=== PATIENT | female | born 1990 | race Caucasian/White ===

== ENCOUNTER 2017-12-30 07:25 | Outpatient (CLI) | payer OTHER ==
--- NOTE | 2017-12-31 14:01 | Ultrasound Report ---
OB ULTRASOUND: 12/30/2017 CLINICAL INDICATION: anatomy. TECHNIQUE: Real-time scanning was performed with community engagement representative static images obtained. LAST MENSTRUAL PERIOD: -- Clinical Age: -- weeks -- days US Age: 20 weeks 2 days EFW Hadlock: 330 grams EFW% Hadlock: -- Heart Rate: 150 bpm EDC: -- US EDC: 05/17/2018 BPD Hadlock: 20 weeks 3 days; Mean mm 48 HC Hadlock: 20 weeks 3 days; Mean mm 180 AC Hadlock: 19 weeks 6 days; Mean mm 145 FL Hadlock: 20 weeks 1 day; Mean mm 33 Presentation: cephalic Placental Location: posterior - L Cervical Length: 5.0 cm Amniotic Fluid: 11.4 cm FINDINGS There is a single viable intrauterine gestation, in cephalic presentation. The heart rate is 150 BPM. The placenta is posterior, without evidence of previa. Amniotic fluid volume is subjectively normal, with the deepest pocket of 3.4 cm. By size, the fetus measures 20 weeks 2 days (uncertain LMP). The following anatomic structures were visualized and appear normal: The intracranial contents, including the ventricles and posterior fossa; the lips and orbits; the spine; the heart, including 4 chamber view and outflow tracts, and diaphragm; the abdominal contents, including the stomach, the bilateral kidneys, and urinary bladder, as well as a normal 3 vessel cord insertion; 4 limbs. No free fluid or adnexal lesion is appreciated. IMPRESSION: Single viable intrauterine gestation, measuring 20 weeks 2 days by size. Normal anatomic survey. TD: 12/30/2017 19:22 [facility]
== END 2017-12-30 07:26 | disposition home or self-care (01) ==
LOC: DI 07:25
PROVIDERS: ATTEND Nurse Practitioner Obstetrics & Gynecology
DX: Z36.9 Encounter for antenatal screening, unspecified (principal); Z3A.20 20 weeks gestation of pregnancy
CPT/HCPCS: 76811

== ENCOUNTER 2018-02-11 14:38 | Outpatient (CLI) | payer OTHER ==
[2018-02-11 16:07] LABS: HGB - HEMOGLOBIN 11.4 g/dL (12.0-16.0); MEAN CORPUSCULAR HEMOGLOBIN 31.5 pg (27.0-31.0); MEAN CORPUSCULAR VOLUME 90.2 fL (81.0-99.0); MEAN PLATELET VOLUME 8.2 fL (7.9-10.8); RED BLOOD COUNT 3.63 10^6/uL (4.20-5.40); RED CELL DISTRIBUTION WIDTH 13.3 % (12.0-15.0)
== END 2018-02-11 14:39 | disposition home or self-care (01) ==
LOC: LAB 14:38
PROVIDERS: ATTEND Registered Nurse
DX: O28.8 Other abnormal findings on antenatal screening of mother (principal); Z34.82 Encounter for supervision of other normal pregnancy, second trimester
CPT/HCPCS: 36415; 82950; 86850; 87086

== ENCOUNTER 2018-03-11 08:00 | Outpatient (CLI) | payer OTHER | END 2018-03-11 08:01 | disposition home or self-care (01) | LOC: LAB.R 08:00 | PROVIDERS: ATTEND Nurse Practitioner Obstetrics & Gynecology | DX: R82.90 Unspecified abnormal findings in urine (principal) | CPT/HCPCS: 87077; 87086 ==

== ENCOUNTER 2018-03-24 08:00 | Outpatient (CLI) | payer OTHER | END 2018-03-24 08:01 | disposition home or self-care (01) | LOC: LAB.R 08:00 | PROVIDERS: ATTEND Registered Nurse | DX: N30.20 Other chronic cystitis without hematuria (principal) | CPT/HCPCS: 87086 ==

== ENCOUNTER 2018-04-07 10:09 | Outpatient (CLI) | payer OTHER | END 2018-04-07 10:10 | disposition home or self-care (01) | LOC: LAB.R 10:09 | PROVIDERS: ATTEND Nurse Practitioner Obstetrics & Gynecology | DX: R82.90 Unspecified abnormal findings in urine (principal) | CPT/HCPCS: 87086 ==

== ENCOUNTER 2018-04-13 15:00 | Outpatient (CLI) | payer OTHER | END 2018-04-13 15:01 | disposition home or self-care (01) | LOC: LAB.R 15:00 | PROVIDERS: ATTEND Nurse Practitioner Obstetrics & Gynecology | DX: R82.99 Other abnormal findings in urine (principal) | CPT/HCPCS: 87086 ==

== ENCOUNTER 2018-04-21 08:00 | Outpatient (CLI) | payer OTHER | END 2018-04-21 08:01 | disposition home or self-care (01) | LOC: LAB.R 08:00 | PROVIDERS: ATTEND Registered Nurse | DX: R82.99 Other abnormal findings in urine (principal); Z34.83 Encounter for supervision of other normal pregnancy, third trimester | CPT/HCPCS: 87081; 87086 ==

== ENCOUNTER 2018-04-28 12:05 | Outpatient (CLI) | payer OTHER | END 2018-04-28 12:06 | disposition home or self-care (01) | LOC: LAB.R 12:05 | PROVIDERS: ATTEND Nurse Practitioner Obstetrics & Gynecology | DX: R82.99 Other abnormal findings in urine (principal) | CPT/HCPCS: 87086 ==

== ENCOUNTER 2018-05-06 08:00 | Outpatient (CLI) | payer OTHER | END 2018-05-06 08:01 | disposition home or self-care (01) | LOC: LAB.R 08:00 | PROVIDERS: ATTEND Registered Nurse | DX: R31.9 Hematuria, unspecified (principal) | CPT/HCPCS: 87086; 87181 ==

== ENCOUNTER 2018-05-20 08:00 | Outpatient (CLI) | payer OTHER | END 2018-05-20 08:01 | LOC: LAB.R 08:00 | PROVIDERS: ATTEND Registered Nurse | DX: N30.21 Other chronic cystitis with hematuria (principal) | CPT/HCPCS: 87086 ==

== ENCOUNTER 2018-05-22 20:51 | Outpatient (CLI) | payer OTHER ==
[2018-05-22 21:28] LABS: BILIRUBIN,URINE NEGATIVE (NEGATIVE); GLUCOSE, URINE (UA) NEGATIVE (NEGATIVE); KETONES,URINE (UA) NEGATIVE (NEGATIVE); LEUKOCYTE ESTERASE, URINE SMALL (NEGATIVE); NITRITE,URINE NEGATIVE (NEGATIVE); OCCULT BLOOD,URINE MODERATE (NEGATIVE); PROTEIN,URINE NEGATIVE (NEGATIVE); UROBILINOGEN,URINE 0.2 (NORMAL) E.U./dL (NORMAL)
[2018-05-22 21:48] LABS: BACTERIA,URINE None Seen /HPF (None Seen); CLARITY,URINE CLEAR (CLEAR); RBC,URINE 0-5 /HPF (0-5); SQUAMOUS EPITHELIAL CELL,UR MANY Squamous (<= Few)
[2018-05-22 22:21] VITALS: BP 127/83
== END 2018-05-22 22:31 | disposition home or self-care (01) ==
LOC: WFO 20:51 → FBP 20:52 → WFO 22:31
PROVIDERS: ATTEND Registered Nurse
DX: O75.89 Other specified complications of labor and delivery (principal); Z3A.01 Less than 8 weeks gestation of pregnancy
CPT/HCPCS: 81001; 87086; 99213

== ENCOUNTER 2018-05-23 02:16 | Inpatient (IN) | payer OTHER ==
[2018-05-23] MEDS ORDERED: SODIUM CHLORIDE FLUSH 0.9% 10 ML SYRINGE IVP PRN (02:42)
[2018-05-23] MEDS ORDERED: LACTATED RINGERS 1,000 ML IV SCH (03:00)
[2018-05-23 03:33] LABS: BASOPHILS % (AUTO) 0.2 %; EOSINOPHILS # (AUTO) 0.1 10^3/uL (0.0-0.7); EOSINOPHILS % (AUTO) 0.6 %; HGB - HEMOGLOBIN 12.2 g/dL (12.0-16.0); LYMPHOCYTES # (AUTO) 1.8 10^3/uL (1.5-3.5); LYMPHOCYTES % (AUTO) 20.3 %; MEAN CORPUSCULAR HGB CONC 34.3 g/dL (32.0-36.0); MEAN CORPUSCULAR VOLUME 90.4 fL (81.0-99.0); MEAN PLATELET VOLUME 9.2 fL (7.9-10.8); MONOCYTES # (AUTO) 0.7 10^3/uL (0.0-1.0); MONOCYTES % (AUTO) 7.6 %; NEUTROPHILS # (AUTO) 6.4 10^3/uL (1.5-6.6); NEUTROPHILS % (AUTO) 71.3 %; PLT - PLATELET COUNT 183 10^3/uL (130-450); RED BLOOD COUNT 3.95 10^6/uL (4.20-5.40); RED CELL DISTRIBUTION WIDTH 13.5 % (12.0-15.0)
[2018-05-23] MEDS ORDERED: OXYTOCIN/SODIUM CHLORIDE 500 ML IV ONE (03:54)
[2018-05-23] MEDS ORDERED: LIDOCAINE 1% 50 ML MDV ONE (03:56)
[2018-05-23] MEDS ORDERED: HYDROCORTISONE/PRAMOXINE 10 GM PR PRN (04:26)
[2018-05-23] MEDS ORDERED: OXYTOCIN/SODIUM CHLORIDE 250 ML IV ONE (04:26)
[2018-05-23] MEDS ORDERED: HYDROCORTISONE 1% CREAM 28 GM TUBE PR PRN (04:26)
[2018-05-23] MEDS ORDERED: WITCH HAZEL/GLYCERIN 1 EACH MED..PAD TOP PRN (04:26)
[2018-05-23] MEDS ORDERED: MAGNESIUM HYDROXIDE 2,400 MG/30 ML UDC PO PRN (04:26)
--- NOTE | 2018-05-23 04:31 | HISTORY & PHYSICAL EXAMINATION ---
Admit History - Instructions [place] [employer] [place]/Slash: -Left hand click circles element as positive or present. -Right hand click slashes element as negative or not present. - Visit Reason Visit Reason: Contractions - : 2 Parity: 1 Premature: 0 Ectopic: 0 : 0 Care: positive: [facility] Risk/History: positive: None Complications This : positive: Treated for GBS/UTI ( recurrent UTI on suppressive keflex) Smoking Status: Never smoker - Mother's Labs Mother's Blood Type: positive: A Mother's RH: positive: Positive GBS: positive: Group B Step Negative Rubella Status: positive: Immune Meds/Allgy - Allergies Allergies/Adverse Reactions: Allergies Allergy/AdvReac Type Severity Reaction Status Date / Time No Known Drug Allergies Allergy Verified 05/23/18 03:01 Review of Systems - Constitutional Constitutional: reports: Fatigue. denies: Fever, Chills - Eyes Eyes: denies: Blurred vision, Spots in vision - Cardiovascular Cariovascular: denies: Irregular heart rate, Palpitations, Chest pain, Edema - Respiratory Respiratory: denies: Cough, Sputum production, SOB at rest, SOB with exertion - Gastrointestinal Gastrointestinal: reports: Abdominal pain (contractions). denies: Constipation , Diarrhea, Change in bowel habits, Nausea, Vomiting - Genitourinary Genitourinary: reports: Frequency, Urgency. denies: Dysuria, Hematuria - Musculoskeletal Musculoskeletal: reports: Back pain. denies: Muscle pain - Integumentary Integumentary: denies: Rash, Pruritis, Lesions - Neurological Neurological: denies: General weakness, Focal weakness, Headache, Dizziness, Numbness - Psychiatric Psychiatric: denies: Depression, Anxiety - All Other Systems All Other Systems: reports: Reviewed and negative Physical - Abdominal Exam Vital Signs: Temp Pulse Resp BP Pulse Ox 36.7 C 103 H 20 132/87 H 100 05/23/18 02:34 05/23/18 02:34 05/23/18 02:34 05/23/18 02:34 05/23/18 02:34 Contraction Frequency (min/apart): 1-3 Contraction Intensity: positive: Strong Uterine Resting Tone: positive: Soft - Monitoring Heart Rate Baseline: 135 Strip Review: positive: Category I - Presentation Presentation: positive: Vertex - Vaginal Exam Membranes: positive: Membranes intact Dilation (in cm): 5 Effacement (%): 90 Station: positive: -2 Cervical Position: positive: Midposition - Speculum Exam Speculum Exam Performed: positive: No Findings: negative: Gross leak - Other Notes Labor Progress Note/Additional Text: Rhett Beth is a 28 y/o who presents at 40w1d in active, spontaneous labor. She desires minimal intervention & unmedicated delivery. Her has been significant only for recurrent UTIs (e.coli), for which she has been treated multiple times w/ neg LUCITA & she is taking suppressive keflex @ this time. PMH: Unremarkable PSH: None Pgynhx: Denies hx STI, abnormal pap; NILM pap 03/2016 POBhx: male 2011 IOL for postdates @ 42.2 weeks, 3 hour second stage, no complications, 8# Sochx: Active duty dianna, to [place], no dv, no etoh/drugs/tobacco PE: GEN: AAOX3, NAD WA gravid female HEENT: Grossly normocephalic, atraumatic, poor dentition, corrective lenses RESP: CTA b/l t/o CARDIAC: RRR nls1s2, no murmur GI: Gravid, NT, +palpable strong contractions, +palpable movement, lie longitudinal, presentation cephalic : No lesion, no exudate MS: FROM t/o, no deformity, no edema SKIN: warm, well-perfused, c/d/i, no lesion NEURO: No focal deficit PSYCH: mild anxiety, otherwise pleasantly conversant w/ normal mood & affect Plan for Labor - Plan For Labor I expect patient to be DC'd or transferred within 96 hours.: Yes Plan for Labor: 1. Admit 2. Admission labs 3. Anticipate
--- NOTE | 2018-05-23 04:41 | DELIVERY NOTE ---
Delivery Note - Labor Labor: positive: Spontaneous - Delivery Method Delivery Method: positive: Spontaneous vaginal delivery - Presentation Presentation: positive: Vertex, Compound (compound R hand), GEOFFREY - right occiput anterior - Nuchal Cord Nuchal Cord: positive: None - Anesthetic Anesthetic Type: - Amniotic Fluid Description Amniotic Fluid Description: positive: Clear - Episiotomy Type Episiotomy Type: positive: None - Laceration Laceration: positive: None - Delivery Outcome Delivery Outcome: positive: Livebirth - [place] : positive: Placed in direct skin contact with mother, Stimulated, Warmed , [place] used sex: positive: Male - Cord Cord: positive: 3 vessels - Placenta Placenta: positive: Intact, Spontaneous - Estimated Blood Loss Estimated Blood Loss (in cc): 100 - Post Delivery Events Post Delivery Events: positive: No post delivery events - Delivery Comments (Free Text/Narrative) Delivery Comments (Free Text/Narrative): Rhett Beth is a 28 y/o who presented in spontaneous, active labor @ 40w1d gestation by first trimester US. She was 5cm on admission & progressed rapidly without intervention or medication to complete dilatation over a period of an hour. FHTs were monitored t/o & were consistently cat I. Found to be complete @ 0350, for a total first stage duration of 1 hour. She pushed w/ spontaneous urge, AROM for small amt CAF. viable male in GEOFFREY position w/ compound R hand over intact perineum @ 0411, for a total 2nd stage duration of 21 minutes. vigorous w/ spontaneous, lusty cry. Placed to maternal abd for drying/stim. Delayed cord clamping until cessation of pulsation, then cord clamped x2 & cut by CNM per parental request. 3VC noted, cord blood obtained. AMTSL w/ Pitocin in IV fluids. Placenta del spontaneously & intact, Milad, @ 0415, for a total 3rd stage duration of 4 minutes. FF @ U. Vagina & perineum inspected & found to be intact. EBL 150mL. Infant apgars 9/9, weight pending. Infant actively nuzzling the breast w/in 20 minutes of delivery; no hx of difficulty w/ . Mother & stable.
[2018-05-23] MEDS: IBUPROFEN 800 MG TABLET PO SCH ×2 (05:38→11:51)
[2018-05-23] MEDS: ACETAMINOPHEN 500 MG TABLET PO SCH ×2 (05:39→11:51)
[2018-05-23] MEDS ORDERED: DOCUSATE SODIUM 100 MG CAPSULE PO SCH (09:00)
[2018-05-23] MEDS ORDERED: SODIUM CHLORIDE FLUSH 0.9% 10 ML SYRINGE IVP SCH (09:00)
[2018-05-23 12:39] VITALS: BP 114/69
--- NOTE | 2018-05-23 15:16 | Discharge Plan ---
Discharge Plan Disposition: 01 Home, Self Care Condition: Good Diet: Regular Activity Restrictions: pelvic rest x6 weeks Shower Restrictions: No Driving Restrictions: No Weight Bearing: Full Weight Instruction Topics: Vaginal After, Breastfeed How To, Exercises Kegel Additional Instructions or Follow Up instructions: x1 week w/ Nimo Bo CNM No Smoking: If you smoke, Please STOP! Call for help. Follow-up with: Nimo Bo CNM, URIEL [Provider Admit Priv/Credential] -
--- NOTE | 2018-05-23 15:42 | DISCHARGE SUMMARY ---
"Discharge Summary Admit Date: 05/23/18 Discharge Date: 05/23/18 Discharging Provider: KWAME Code Status: Attempt Resuscitation Condition at Discharge: Good Discharge Disposition: 01 Home, Self Care Discharge Facility Name: [facility] - DIAGNOSES Admission Diagnoses: ACTIVE SPONTANEOUS LABOR AT TERM Discharge Diagnoses with Status of Each Condition: - HPI History of Present Illness: Rhett Beth is a 28 y/o N1oclD5 who was admitted in spontaneous active labor at [id number] gestation. She progressed rapidly w/o intervention or medication to complete dilatation & delivered a viable male vaginally over an intact perineum w/o complication - CONSULTS | PROCEDURES Consultations: none Procedures: - HOSPITAL COURSE Hospital Course: , Rhett's pain has been well-controlled w/ a single dose of 800mg of ibuprofen. She is ambulating & voiding w/o difficulty. She is having moderate lochia rubra. She is passing flatus & tolerating a regular diet. She is well w/o difficulty. She reports a previously successful experience. She denies hx of pp depression. She will have 84 days of pp leave w/ her . Her partner will be home to assist her & he will not be returning to work. She is planning another w/in the year & does not intend to contracept between this delivery & her next . She is able to fully articulate pp warning s/sx, including pp depression s/sx, and pp aftercare instructions. She is ready to leave the hospital. - ALLERGIES Allergies/Adverse Reactions: Allergies Allergy/AdvReac Type Severity Reaction Status Date / Time No Known Drug Allergies Allergy Verified 05/23/18 03:01 - MEDICATIONS Home Medications: Ambulatory Orders Medication Instructions Recorded Confirmed Ibuprofen [Motrin] 800 mg PO Q6H tablet 05/23/18 - PHYSICAL EXAM AT DISCHARGE General Appearance: positive: No acute distress, Alert Respiratory: positive: Chest non-tender, No respiratory distress, Breath sounds nml Cardiovascular: positive: Regular rate & rhythm, No murmur, No gallop Abdomen: positive: Non-tender, No distention, Other (FF U-1) Skin: positive: Color nml, No rash, Warm, Dry Extremities: positive: Non-tender, Full ROM, Nml appearance, No pedal edema. negative: Calf tenderness, Amanda's sign/cords Neurologic/Psychiatric: positive: Oriented x3, CN's nml (2-12), Motor nml, Sensation nml, Mood/affect nml - LABS Result Diagrams: 05/23/18 03:15 - FOLLOW UP Follow Up: Nimo Bo CNM x1 week - TIME SPENT Time Spent in Discharge (Minutes): 15"
--- NOTE | 2018-05-23 16:08 | Labor Flowsheet ---
Labor Flowsheet Datetime Report Generated by CPN: 05/23/2018 16:08 Datetime: 05/23/2018 12:20 VITAL SIGNS NBP Sys/Chelo/Mean (mmHg): 114 : 69 : 79 Pulse: 71 SpO2 (%): 98 LaborFlag: Labor Datetime: 05/23/2018 04:11 UTERINE ACTIVITY Monitor Mode: External Frequency (min): 1.5-2 Quality: Strong Pattern: Normal: <= 5 Contractions in 10 Minutes Resting Tone (Palpate): Relaxed ASSESSMENT A Monitor Mode: External US FHR Baseline Rate : 130 Variability: Moderate 6-25 bpm Accelerations: None Decelerations: Variable Category: Category II Datetime: 05/23/2018 04:00 Duration (sec): 70-100 Datetime: 05/23/2018 03:55 VAGINAL EXAM Exam by: Membrane Status: Ruptured Membranes Ruptured Date/Time: 05/23/2018 03:55 Membranes Rupture Method: Artificial Amniotic Fluid Color: Clear Amniotic Fluid Amount: Moderate Datetime: 05/23/2018 03:50 STAGE 2 Pushing: Coached on Pushing; Urge to Push Pushing Position: Pushing with Contractions Pushing Progress: Descent with Pushing Datetime: 05/23/2018 03:40 TEACHING Instructional Method: Verbal Plan of Care: Vaginal Delivery Datetime: 05/23/2018 03:28 Stage of : Labor Datetime: 05/23/2018 03:21 Patient Position/Activity: Birthing Ball Datetime: 05/23/2018 03:19 PATIENT CARE IV/Blood Work: IV Started Datetime: 05/23/2018 03:18 Patient Care Comments: Pt back in bed requesting an epidural COMMUNICATION Communication: Call/Page Placed to Provider Provider Notified (Name): Maria Guadalupe Bo Datetime: 05/23/2018 03:00 Comments: periods of minimal variability
== END 2018-05-23 15:40 | disposition home or self-care (01) | DRG 774 ==
LOC: WFO 02:16 → FBP 02:19 → WFO 02:35 → FBP 02:39
PROVIDERS: ADMIT Registered Nurse; ATTEND Registered Nurse
PROC: 10E0XZZ Delivery of Products of Conception, External Approach (ICD-10-PCS; principal; 2018-05-23)
PROC: 10907ZC Drainage of Amniotic Fluid, Therapeutic from Products of Conception, Via Natural or Artificial Opening (ICD-10-PCS; 2018-05-23)
DX: O75.3 Other infection during labor (principal); N39.0 Urinary tract infection, site not specified; O99.824 Streptococcus B carrier state complicating childbirth; Z37.0 Single live birth; Z3A.40 40 weeks gestation of pregnancy; Z79.2 Long term (current) use of antibiotics
CPT/HCPCS: 85025; 86850; 86900; 86901; 99213